=== PATIENT | female | born 1995 | race Caucasian/White ===

== ENCOUNTER 2022-02-02 03:28 | Emergency (ER) | payer OTHER ==
[~2022-02-02] VITALS: Ht 165.1 cm; Wt 72.6 kg
--- NOTE | 2022-02-02 03:40 | NUR ---
BIBS. CHEST TIGHTNESS AND SHARP PAIN MID STERNAL, NON RADIATING. 10/09 X 2300. PT A/OX4. TOELRATING R/A WELL WITH NO SOB. LAST ATE FOOD AT 1999. SAFETY MEASURES IN PLACE.
[2022-02-02] MEDS ORDERED: MAG HYDROX/AL HYDROX/SIMETH 30 ML UDC ONE (04:08)
[2022-02-02] MEDS ORDERED: FAMOTIDINE (20 MG) 20 MG TABLET ONE (04:09)
[2022-02-02] MEDS ORDERED: MAG HYDROX/AL HYDROX/SIMETH 30 ML UDC PO ONE (04:30)
[2022-02-02] MEDS ORDERED: FAMOTIDINE (20 MG) 20 MG TABLET PO ONE (04:30)
[2022-02-02] MEDS ORDERED: ONDANSETRON 4 MG TAB.RAPDIS ONE (04:56)
[2022-02-02] MEDS ORDERED: ONDANSETRON 4 MG TAB.RAPDIS SL ONE (05:00)
[2022-02-02] MEDS ORDERED: ONDA4TAB5 PO (05:19)
[2022-02-02] MEDS ORDERED: OMEP20CA15 PO (05:19)
--- NOTE | 2022-02-02 05:27 | NUR ---
Patient discharged to home in stable condition. RX Written and verbal after care instructions given. Patient verbalizes understanding of instruction. PT ambulatory with a steady gait
[2022-02-02 05:28] VITALS: BP 124/84
== END 2022-02-02 05:28 | disposition home or self-care (01) ==
LOC: ER 03:32
DX: K21.9 Gastro-esophageal reflux disease without esophagitis (principal); Z79.899 Other long term (current) drug therapy
CPT/HCPCS: 99284; Q0162